=== PATIENT | female | born 1985 | race Caucasian/White ===

== ENCOUNTER → 2017-05-31 14:43 | Outpatient (CLI) | payer MEDICAID, OTHER, SELFPAY ==
--- NOTE | 2017-05-31 14:51 | US_ITS ---
US thyroid HISTORY: ITS.REASON: THYROMEGLY, para loss, fatigue ORDERING PHYSICIAN: Kristy Lea PATIENT AGE: 31 years COMPARISON: None FINDINGS: Right lobe: Right lobe measures 4.3 x 1.5 x 1.9 cm. There is a mixed nodule in the mid aspect of the right lobe at 13 x 8 mm isoechoic and hypoechoic. Left lobe: 4.3 x 1.2 x 1.6 cm Isthmus: Unremarkable IMPRESSION: Thyroid gland is upper limits of normal in size. 13 mm mixed Echogenic nodule in the mid polar region on the right indeterminate. Recommend 6 month follow-up
== END ==
PROVIDERS: Family Provider Family Medicine; PCP Nurse Practitioner Family; Visit Provider Nurse Practitioner Family
DX: E01.0 Iodine-deficiency related diffuse (endemic) goiter (principal)
CPT/HCPCS: 76536

== ENCOUNTER → 2017-11-11 14:37 | Outpatient (CLI) | payer OTHER, MEDICAID, SELFPAY ==
--- NOTE | 2017-11-11 14:40 | US_ITS ---
US thyroid HISTORY: Follow-up thyroid nodule ITS.REASON: thyroid nodule ORDERING PHYSICIAN: Donald Baer MD PATIENT AGE: 32 years Comparison: 05/31/2017 FINDINGS: The right lobe is 4.1 x 1.4 x 2.2 cm. A complex 1 cm nodule is present in the lower pole having both cystic and solid component. Overall the nodule slightly smaller previously at 1.3 x 0.8 cm. No new nodules. The left lobe is 3.8 x 1.2 x 1.9 cm and has an unremarkable appearance. IMPRESSION: Slight decrease in size in complex right-sided thyroid nodule
[2017-11-11 17:02] LABS: Free T4 (Free Thyroxine) 0.79 ng/dl (0.76-1.46); Thyroid Stimulating Hormone 2.07 uIU/ml (0.358-3.740)
== END ==
PROVIDERS: Family Provider Family Medicine; PCP Nurse Practitioner Family; Visit Provider Otolaryngology
DX: E04.1 Nontoxic single thyroid nodule (principal)
CPT/HCPCS: 36415; 76536; 84439; 84443

== ENCOUNTER → 2019-08-18 14:32 | Outpatient (CLI) | payer OTHER, SELFPAY ==
[2019-08-20 08:55] LABS: Covid-19 Nasal PCR Sendout Lex NOT DETECTED
--- NOTE | 2019-08-20 11:28 | PC.NURSE ---
0900-pt and provider notified of negative COVID 19 results.
== END ==
PROVIDERS: Visit Provider Nurse Practitioner Family
DX: R05 Cough (principal); R50.9 Fever, unspecified

== ENCOUNTER → 2020-02-13 12:57 | Outpatient (CLI) | payer OTHER, SELFPAY ==
--- NOTE | 2020-02-13 17:02 | PC.NURSE ---
pt notified her covid test was positive, pt states only symptom was scratchy throat- pt has been in isolation
== END ==
PROVIDERS: PCP Family Medicine; Visit Provider Nurse Practitioner Family
DX: Z20.828 Contact with and (suspected) exposure to other viral communicable diseases (principal); U07.1 COVID-19
CPT/HCPCS: U0003

== ENCOUNTER → 2021-03-27 14:16 | Outpatient (CLI) | payer OTHER, SELFPAY ==
--- NOTE | 2021-03-27 14:18 | US_ITS ---
PROCEDURE: US THYROID CLINICAL INDICATION: THYROID NODULE COMPARISON: US THY US thyroid from 11/11/2017 FINDINGS: Right lobe: 4.2 x 1.5 x 1.9 cm. A cystic nodules present in the mid aspect of the right lobe of the thyroid gland at 14 x 9 mm. The nodule has enlarged however has become more cystic compared to the previous exam TR level 2 benign-appearing. The nodule is wider than tall with no calcifications. Left lobe: 4.2 x 1.1 x 1.7 cm with an unremarkable appearance. Isthmus: 3 mm in thickness Additional findings: IMPRESSION: Benign-appearing cystic nodule of the right lobe of the thyroid gland. Dictated by: Davy Bobby MD 03/27/2021 18:08 Davy Bobby MD in [facility] 03/27/2021 18:08
== END ==
PROVIDERS: PCP Family Medicine; Visit Provider Otolaryngology
DX: E04.1 Nontoxic single thyroid nodule (principal)
CPT/HCPCS: 76536

== ENCOUNTER → 2021-04-18 08:47 | Outpatient (CLI) | payer OTHER, SELFPAY ==
[2021-04-18 09:18] LABS: Basophils % 0.3 % (0.1-2.0); Eosinophils # 0.2 K/mm3 (0.0-0.4); Eosinophils % 3.6 % (0.1-12.0); Hematocrit 40.3 % (37.0-47.0); Hemoglobin 13.7 g/dL (12.2-16.2); Mean Corpuscular Volume 88.1 fl (81-99); Mean Platelet Volume 7.9 fl (7.4-10.4); Monocytes # 0.4 K/mm3 (0.1-1.0); Neutrophils # 3.6 K/mm3 (1.8-7.8); Platelet Count 296 K/mm3 (142-424); Red Blood Count 4.57 M/mm3 (4.20-5.40); Red Cell Distribution Width 12.8 % (11.5-17.5); White Blood Count 6.2 K/mm3 (4.8-10.8)
[2021-04-18 10:25] LABS: Chloride 104 mmol/L (98-107); HCG Qualitative, Serum Negative (Negative)
[2021-04-18 10:26] LABS: Potassium 4.9 mmoL/L (3.5-5.1); Sodium 139 mmol/L (136-145)
[2021-04-18 10:28] LABS: Alanine Aminotransferase 58 U/L (12-78); Alkaline Phosphatase 66 U/L (38-126); Aspartate Amino Transferase 57 U/L (14-36); Blood Urea Nitrogen 13 mg/dl (7-17); Estimated Glomerular Filt Rate 114 ml/min (>60); GFR (African American) 138 ML/MIN (>60)
[2021-04-18 10:29] LABS: Albumin Level 4.1 g/dl (3.5-5.0); Albumin/Globulin Ratio 1.6 (1.1-1.8); Anion Gap 11.9 mEq/L (5-15); Calcium 8.6 mg/dl (8.4-10.2); Carbon Dioxide 28 mmol/L (22.0-30.0); Globulin 2.5 g/dL (1.3-3.2); Glucose 90 mg/dl (74-100); Total Protein,Serum 6.6 g/dl (6.3-8.2)
[2021-04-18 10:34] LABS: Bilirubin,Total < 0.1 mg/dl (0.2-1.3)
== END ==
PROVIDERS: Visit Provider Obstetrics & Gynecology
DX: Z01.812 Encounter for preprocedural laboratory examination (principal); Z11.52 Encounter for screening for COVID-19; N92.0 Excessive and frequent menstruation with regular cycle
CPT/HCPCS: 36415; 80053; 84703; 85025; C9803; U0003; U0005

== ENCOUNTER 2021-04-20 07:22 | Day surgery (SDC) | payer OTHER, SELFPAY ==
[2021-04-17 11:14] VITALS: BMI 40.7
[2021-04-20] VITALS (10 sets, daily range): BP systolic 114–135; BP diastolic 47–96; PULSE 90–110; RESP 16–17; TEMP 36.7–43; O2SAT 93–100
--- NOTE | 2021-04-20 09:14 | HMH.ANESCL ---
[facility] Anesthesia Checklist - Patient Identification Patient Identification: Arm Band - Structural Data Admitted From: Home Planned Operative Procedure/s: Hyst/BTL Consent for Planned Operative Procedure(s) Verified: Yes - NPO Status Verified Time NPO: 00:00 - Additional verifications Anesthesia Reactions: No Hx Blood Transfusions: No Blood Transfusion Reaction: No - Airway Assessment C-Spine Mobility Assessed: Yes TMJ Mobility Assessed: Yes Dentition: Good Dentition - Neurological Assessment Level of Consciousness: Awake Hx Seizures: No Numbness or tingling in extremities: No - Anesthesia Plan Anesthesia Risk discussed: Yes Anesthesia Plan: Verified ASA Class: II Anesthesia Type: General [facility] History I have reviewed the patient's past medical history: Yes Medical History: Reports:: Anxiety, Depression Denies:: Cancer, Diabetes Mellitus Type 1, Diabetes Mellitus Type 2, Internal Pacemaker, MRSA, Seizures *Have you ever received a pneumonia vaccine?: No *Have you received a flu vaccine this season?: Yes Other Medical History: Denies: Blood Transfusion Reaction Anesthesia experience/problems:: None Other Surgeries: Yes: No Previous Surgery, Dilation and Curettage, Other. No: Pacemaker Amputation: No Fractures: No - *Social History Last grade of school completed: Advanced degree Smoking Status: Never smoker Alcohol Intake: never Alcohol Intake Frequency:: holidays/special occasions only Substance Use Type: denies use *Occupational Status:: employed Housing: house Household Members: children *Travel in the last 8 weeks: None - Psychiatric History Pschychiatric History:: Reports:: Anxiety, Depression Family Hx:: Asthma, Coronary Artery Disease, Diabetes, Heart Attack, Hyperlipidemia, Hypertension, Stroke, Thyroid Disorder
--- NOTE | 2021-04-20 11:11 | P.PN_ITS ---
[facility] Anesthesia Record Part I Intake, IV Amount: 1,000 Estimated blood loss (mL): 5 Urine output (mL): 0 Blood Pressure: 134/62 SaO2: 93 Pulse Rate: 94 Respiratory Rate: 17 Temperature: 98.3 F Patient is:: Drowsy, Oral/Nasal airway Stable to PACU at:: 11:09
--- NOTE | 2021-04-20 13:32 | P.OP_ITS ---
Date of procedure: 04/20/21 Pre-op Diagnosis:: 1. Heavy menstrual bleeding 2. Dysfunctional uterine bleeding 3. Undesired fertility Post-op Diagnosis:: same Procedure performed:: 1. Laparoscopic tubal ligation 2. D&C Hysteroscopy 3. Novasure endometrial ablation Surgeon:: Evelin Gr MD FURNITURE PAINTER:: Faustinajuan miguel Chinmekhi Anesthesia: GETA Estimated blood loss (mL): 5 Operative findings:: grossly normal uterus, fallopian tubes and ovaries normal uterine cavity Operative note:: LAPAROSCOPY: The patient was taken to the operating room and general anesthesia was administered. She was prepped/draped in lithotomy position. A uterine manipulator was placed without difficulty. Gloves were changed and attention was turned to the abdomen. A 5mm skin incision was made in the umbilical fold and the verees needle was inserted through the peritoneum and into the abdominal cavity in standard fashion. The abdomen was insufflated with CO2 gas. A 5mm non-bladed trocar was inserted directly into the abdominal cavity and appropriate placement was confirmed with the laparoscope. No intra-abdominal injuries occurred during entry into the abdominal cavity, as confirmed visually with the laparoscope. The patient was placed in trendelenburg and a 11mm skin incision was made 2cm above the pubic symphysis. A 11mm non-bladed trocar was inserted under direct visualization, without complication. The uterus was elevated out of the pelvis in order to better visualize the anatomy. A survey of the pelvis and abdomen revealed normal pelvic anatomy. Filshie clips were placed over both fallopian tubes, approximately 2cm from the cornual region of the uterus. The clips were noted to completely occlude each tube. The abdomen was then evacuated of gas and all trocars removed. The skin incisions were closed with 4-0 monocryl. HYSTEROSCOPY: Attention was then turned to the vagina, and the uterine manipulator was removed. The anterior lip of the cervix was grasped with a single tooth tenaculum and the cervix was dilated with Neely dilators of serially increasing size until the external os was able to accomodate the Myosure hysteroscope. The hysteroscope was advanced through the cervix and into the uterine cavity, which was distended with LR. Once the uterus was sufficiently distended, the cavity was evaluated and revealed a normal uterine cavity without submucosal fibroids or endometrial polyps. Sharp curettage was performed and the specimen sent for pathology. The hysteroscope were removed from the uterus. The uterine cavity sounded to a length of 5cm. The Novasure was inserted through the cervix and expanded to fit the width of the uterus, with a width of 3.8cm. After a successful cavity assessment, the device was deployed and the endometrial ablation was completed in 74 seconds. Once the device had turned off, the Novasure was removed from the uterus and the hysteroscope was reinserted into the uterine cavity. The cavity appeared diffusely cauterized. The hysteroscope was removed from the uterus and all instruments removed from the vagina. The tenaculum site was hemostatic. All sponge/lap/needle/instrument counts correct for both abdominal and vaginal procedures. Total EBL: 5 cc. The patient was taken out of lithotomy position, extubated and taken to the PACU in stable condition. Condition: stable Disposition: PACU Specimens:: endometrial curettings Complications:: none
--- NOTE | 2021-04-21 13:20 | P.PN_ITS ---
[facility] Anesthesia Record Part II Discharge Time: 11:49 Destination: [facility] PACU nurse assessment reviewed?: Yes Patient Condition:: Good Anesthesia Complications:: None Swallowing reflex intact?: Yes Cyanosis?: No Blood Pressure: 126/76 Pulse Rate: 110 Temperature: 98.0 F Mental Status: Alert & Oriented Pain level:: 3 Nausea and/or vomitting:: None Intake, IV Amount: 1,000
[2021-04-21 13:21] VITALS: BP 126/76; PULSE 110; TEMP 36.7
== END 2021-04-20 12:25 | disposition home or self-care (01) ==
LOC: OR 07:24
PROVIDERS: PCP Family Medicine; Visit Provider Obstetrics & Gynecology
PROC: (CPT 58563; principal; 2021-04-20 09:00)
DX: N92.0 Excessive and frequent menstruation with regular cycle (principal); N94.6 Dysmenorrhea, unspecified; Z30.2 Encounter for sterilization; F41.9 Anxiety disorder, unspecified; F32.A Depression, unspecified; Z87.09 Personal history of other diseases of the respiratory system; Z83.3 Family history of diabetes mellitus; Z82.49 Family history of ischemic heart disease and other diseases of the circulatory system; Z83.438 Family history of other disorder of lipoprotein metabolism and other lipidemia; Z82.3 Family history of stroke; Z83.49 Family history of other endocrine, nutritional and metabolic diseases; Z79.899 Other long term (current) drug therapy
CPT/HCPCS: 58563 ×2; 58670; 96374; J0131; J2405

== ENCOUNTER → 2022-11-12 12:46 | Outpatient (CLI) | payer OTHER, SELFPAY ==
--- NOTE | 2022-11-12 12:52 | US_ITS ---
PROCEDURE: US TRANSVAGINAL CLINICAL INDICATION: pelvic pain COMPARISON: No exams were available for comparison FINDINGS: UTERUS: 8cm x 5cmx 5cm with a combined endometrial thickness of 4.9mm. The uterus is retroverted and retroflexed. There is a 1 centimeter cystic area at the fundus of the uterus possibly a result of post ablation changes. There are 2 nabothian cysts in the cervix each measures approximately 1 cm in size. LEFT OVARY: [id number] with a volume of 7ml.The left ovary appears polycystic. RIGHT OVARY: 3cmx [id number] with a volume of 9.8ml. The right ovary appears polycystic There is a small amount of fluid around the right ovary. Both ovaries are seen and appear normal. Doppler flow to both ovaries are seen. There is no fluid in the cul-de-sac. IMPRESSION: 1. Uterus is retroverted and retroflexed. The endometrium is 4.9 mm. 2. There is a cystic area at the fundus of the uterus associated with post ablation changes that measures approximately 1 cm. 3. There are 2 nabothian cysts in the cervix that each measure 1 cm. 4. Both ovaries appear polycystic. Dictated by: Bo Barnard MD 11/13/2022 08:42 Bo Barnard MD in [facility] 11/13/2022 08:42
[2022-11-12 14:27] LABS: Basophils % 0.1 % (0.1-2.0); Eosinophils # 0.1 K/mm3 (0.0-0.4); Eosinophils % 1.1 % (0.1-12.0); Hemoglobin 13.3 g/dL (12.2-16.2); Lymphocytes # 2.4 K/mm3 (0.7-4.5); Lymphocytes % 38.9 % (10-50); Mean Corpuscular HGB Conc 32.4 g/dL (31.8-35.4); Mean Corpuscular Hemoglobin 26.1 pg (27.0-31.2); Mean Corpuscular Volume 80.3 fl (81-99); Mean Platelet Volume 8.1 fl (7.4-10.4); Monocytes # 0.3 K/mm3 (0.1-1.0); Monocytes % 5.7 % (1.7-9.3); Neutrophils # 3.3 K/mm3 (1.8-7.8); Neutrophils % 54.3 % (37.0-80.0); Platelet Count 260 K/mm3 (142-424); Red Blood Count 5.11 M/mm3 (4.20-5.40); Red Cell Distribution Width 15.5 % (11.5-17.5); White Blood Count 6.1 K/mm3 (4.8-10.8)
[2022-11-12 15:02] LABS: Alanine Aminotransferase 15 U/L (12-78); Albumin Level 4.4 g/dl (3.5-5.0); Albumin/Globulin Ratio 1.8 (1.1-1.8); Alkaline Phosphatase 56 U/L (38-126); Aspartate Amino Transferase 21 U/L (14-36); Bilirubin,Total 0.4 mg/dl (0.2-1.3); Blood Urea Nitrogen 13 mg/dl (7-17); Calcium 9.1 mg/dl (8.4-10.2); Carbon Dioxide 28 mmol/L (22.0-30.0); Cholesterol 210 mg/dl (140-200); Estimated Glomerular Filt Rate 95 ml/min (>60); GFR (African American) 115 ML/MIN (>60); Globulin 2.5 g/dL (1.3-3.2); Glucose 80 mg/dl (74-100); HDL Cholesterol 52 mg/dl (40-60); Potassium 4.5 mmoL/L (3.5-5.1); Sodium 138 mmol/L (136-145); Total Protein,Serum 6.9 g/dl (6.3-8.2); Triglycerides 130 mg/dl (30-150); VLDL Cholesterol 26 mg/dL (0-40)
[2022-11-12 15:13] LABS: Direct LDL Cholesterol 125.33 mg/dL (100-129)
[2022-11-12 15:33] LABS: Thyroid Stimulating Hormone 1.61 uIU/mL (0.465-4.68)
[2022-11-12 15:49] LABS: Hemoglobin A1C 5.3 % (4.0-6.0)
[2022-11-12 16:50] LABS: 25-OH Vitamin D, Total 33.4 ng/mL (30-100)
[2022-11-12 16:51] LABS: Anion Gap 10.5 mEq/L (5-15); Chloride 104 mmol/L (98-107)
== END ==
PROVIDERS: PCP Nurse Practitioner Family; Visit Provider Obstetrics & Gynecology
DX: R10.2 Pelvic and perineal pain (principal); E78.2 Mixed hyperlipidemia; F39 Unspecified mood [affective] disorder; E55.9 Vitamin D deficiency, unspecified; Z98.84 Bariatric surgery status
CPT/HCPCS: 36415; 76830; 80053; 80061; 82306; 83036; 84443; 85025

== ENCOUNTER 2023-05-08 19:51 | Emergency (ER) | payer OTHER, SELFPAY ==
[2023-05-08] VITALS (9 sets, daily range): BP systolic 110–128; BP diastolic 66–88; PULSE 70–94; RESP 12–20; TEMP 36.7–36.8; O2SAT 96–100; BMI 26.0; BMI 57.4
--- NOTE | 2023-05-08 19:52 | ECG_ITS ---
APPROVED REPORT Exam: Resting ECG HR:79 bpm ECG Measurements Heart Rate 79 AXES CA 136 P 68 QRSd 74 QRS 80 QT 347 T 79 QTc 381 Conclusion SINUS RHYTHM NORMAL ECG UNCONFIRMED REPORT Electronically signed by : Alfonso Lorenzana MD 05/09/2023 20:32:04
--- NOTE | 2023-05-08 20:01 | XR_ITS ---
PROCEDURE INFORMATION: Exam: XR Chest Exam date and time: 05/08/2023 8:00 PM Age: 37 years old Clinical indication: Other: Chest pain TECHNIQUE: Imaging protocol: Radiologic exam of the chest. Views: 2 views. COMPARISON: No relevant prior studies available. FINDINGS: Lungs: Unremarkable. No consolidation. Pleural spaces: Unremarkable. No pleural effusion. No pneumothorax. Heart/Mediastinum: Unremarkable. No cardiomegaly. Bones/joints: Unremarkable. IMPRESSION: No acute pulmonary findings.
[2023-05-08 20:15] LABS: Basophils # 0.1 K/mm3 (0-0.2); Basophils % 0.9 % (0.1-2.0); Eosinophils # 0.2 K/mm3 (0.0-0.4); Hematocrit 44.3 % (37.0-47.0); Lymphocytes % 40.4 % (10-50); Mean Corpuscular HGB Conc 33.9 g/dL (31.8-35.4); Mean Corpuscular Hemoglobin 29.7 pg (27.0-31.2); Mean Corpuscular Volume 87.8 fl (81-99); Mean Platelet Volume 7.9 fl (7.4-10.4); Monocytes # 0.5 K/mm3 (0.1-1.0); Monocytes % 6.1 % (1.7-9.3); Neutrophils # 3.8 K/mm3 (1.8-7.8); Neutrophils % 50.6 % (37.0-80.0); Platelet Count 370 K/mm3 (142-424); Red Blood Count 5.04 M/mm3 (4.20-5.40); Red Cell Distribution Width 12.8 % (11.5-17.5); White Blood Count 7.5 K/mm3 (4.8-10.8)
--- NOTE | 2023-05-08 20:29 | CT_ITS ---
PROCEDURE INFORMATION: Exam: CT Head Without Contrast Exam date and time: 05/08/2023 8:44 PM Age: 37 years old Clinical indication: Pain; Other: Fall; Additional info: Fall, head injury n/v TECHNIQUE: Imaging protocol: Computed tomography of the head without contrast. Radiation optimization: All CT scans at this facility use at least one of these dose optimization techniques: automated exposure control; mA and/or kV adjustment per patient size (includes targeted exams where dose is matched to clinical indication); or iterative reconstruction. COMPARISON: US THYROID 03/27/2021 2:19 PM FINDINGS: Brain: Normal. No hemorrhage. Unremarkable white matter. No mass effect. Cerebral ventricles: No ventriculomegaly. Paranasal sinuses: Visualized sinuses are unremarkable. No fluid levels. Mastoid air cells: Visualized mastoid air cells are well aerated. Bones/joints: Unremarkable. No acute fracture. Soft tissues: Unremarkable. IMPRESSION: No acute intracranial findings.
--- NOTE | 2023-05-08 20:29 | CT_ITS ---
PROCEDURE INFORMATION: Exam: CT Cervical Spine Without Contrast Exam date and time: 05/08/2023 8:46 PM Age: 37 years old Clinical indication: Neck pain; Additional info: Midline c spine pain following fall TECHNIQUE: Imaging protocol: Computed tomography of the cervical spine without contrast. Radiation optimization: All CT scans at this facility use at least one of these dose optimization techniques: automated exposure control; mA and/or kV adjustment per patient size (includes targeted exams where dose is matched to clinical indication); or iterative reconstruction. COMPARISON: CT HEAD/BRAIN WO CON 05/08/2023 8:44 PM FINDINGS: Bones/joints: Cervical vertebrae normal in height. Reversal of normal cervical lordosis centered at C5-C6. Mild levoconvex curvature of the cervicothoracic junction. Maintained craniocervical junction. No acute fracture. Mild mid to lower cervical spine degenerative changes. No severe spinal canal stenosis. Mild left C5-C6 neural foraminal narrowing. Lungs: Lung apices are normal. Soft tissues: Unremarkable. IMPRESSION: No acute osseous findings.
[2023-05-08 20:30] LABS: Chloride 102 mmol/L (98-107); Sodium 140 mmol/L (136-145)
[2023-05-08 20:31] LABS: Potassium 3.6 mmoL/L (3.5-5.1)
[2023-05-08 20:33] LABS: Alanine Aminotransferase 20 U/L (12-78); Albumin Level 4.6 g/dl (3.5-5.0); Albumin/Globulin Ratio 1.6 (1.1-1.8); Alkaline Phosphatase 54 U/L (38-126); Anion Gap 11.6 mEq/L (5-15); Aspartate Amino Transferase 26 U/L (14-36); Bilirubin,Total 0.4 mg/dl (0.2-1.3); Blood Urea Nitrogen 16 mg/dl (7-17); Carbon Dioxide 30 mmol/L (22.0-30.0); Creatinine Clearance Estimated 92 mL/min (50-200); Estimated Glomerular Filt Rate 95 ml/min (>60); GFR (African American) 115 ML/MIN (>60); Globulin 2.8 g/dL (1.3-3.2); Total Protein,Serum 7.4 g/dl (6.3-8.2)
[2023-05-08 20:34] LABS: Calcium 8.6 mg/dl (8.4-10.2); Glucose 75 mg/dl (74-100)
--- NOTE | 2023-05-08 20:34 | ED_ITS ---
Discharge Plan Disposition Patient Disposition: Home, Self-Care Condition: Good Prescriptions Prescriptions: No Action venlafaxine 37.5 mg capsule,extended release 24hr 37.5 mg PO dextroamphetamine-amphetamine [Adderall XR] 30 mg capsule,extended release 24hr 30 mg PO diltiazem HCl [Cartia XT] 120 mg capsule,extended release 24hr 120 mg PO DAILY Referrals Follow up/Referrals: Abdirahman Quiñonez MD [Staff Physician] - See instructions Provider,MD Ricky [Referring] - See instructions Activity Restrictions/Add. Instructions Additional Instructions/Restrictions: Please follow up with our fish and wildlife biologist for a more comprehensive evaluation of your heart regarding your chronic and intermittent orthostatic syncopal episodes. Clinical Impressions Clinical Impression: Concussion, Chest pain, Cervical strain, Orthostatic syncope Discharge ED Provider: Josse Gr [facility] <Josse Gr MD - Last Filed: 05/08/23 22:42> General Chief Complaint: Chest Pain Stated Complaint: CP Time Seen by Provider: 05/08/23 20:09 Mode of Arrival: Family Vehicle Source of Information: Patient Limitations: No Limitations Description of Symptoms (Recalled from ER Triage Doc. by RN): 37 yo female presents with CC of chest tightness that began at approx 3pm. States she has had an eventful day complete with a syncopal episode where she fell and hit her head this morning; saw a physician specialist in [place] this afternoon and developed chest pain this afternoon. Patient is currently diagnosed with Sjorgen's syndrome, Raynaud's and being evaluated for POTS (which she attributes the syncopal episode to). Current meds: effexor and adderall. Denies any recent changes or missed dosages. No previous diagnosed cardiac events or arrythmias . 1 episode of vomiting following the morning's fall. Denies visual changes, or additional feelings of syncope. States her neck is sore. History of Present Illness HPI narrative: Is a 37-year-old female present today with multiple complaints. She has been having several syncopal episodes a month over the last several years always associated with positional change going from lying to sitting or sitting to standing. She is never had any cardiac evaluation and has not sought medical evaluation for this until very recently. Check she had a rheumatology appointment today for evaluation of possible Raynaud's she has a family history of multiple autoimmune disorders and they think that she may have similar symptoms. However this morning she had another syncopal episode upon standing fell hit her head has had significant head pain nausea and vomiting and midline cervical spine pain since that time. No focal neurologic deficits or any other complaints. Of note she presents today with chest pain which started around 3 PM has been sharp in nature nonradiating nonexertional no fevers chills cough etc. but is primarily the chest pain that brought her here today. Related Data Home Medications Medication Instructions Recorded Confirmed dextroamphetamine-amphetamine ER 30 mg PO 10/25/22 03/18/23 30 mg 24hr capsule,extend release (Adderall XR) venlafaxine 37.5 mg 37.5 mg PO 10/25/22 03/18/23 capsule,extended release 24 hr diltiazem HCl 120 mg 120 mg PO DAILY 03/18/23 03/18/23 capsule,extended release 24 hr (Cartia XT) Allergies Allergy/AdvReac Type Severity Reaction Status Date / Time No Known Allergies Allergy Verified 03/18/23 10:42 [facility] <Josse Gr MD - Last Filed: 05/08/23 22:42> [facility] Disclaimer: The information contained in this section may have been updated after the patient was seen, as this information can be updated by other users. 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 current occupational exposures/hazards: No caffeine: Yes <Josse Gr MD - Last Filed: 05/08/23 22:42> ROS Obtained: Yes All systems reviewed & no additional complaints except as documented Physical Exam <Josse Gr MD - Last Filed: 05/08/23 22:42> General General appearance: alert and in no apparent distress Neck Neck exam: Present tenderness (Cervical spine tenderness) Respiratory Respiratory exam: Present normal lung sounds bilaterally; Absent respiratory distress or wheezes Cardiovascular Cardiovascular exam: Present regular rate; Absent tachycardia Neurological Exam Neurological exam: Present alert, oriented X3, CN II-XII intact and normal gait; Absent motor sensory deficit HEART Score <Josse Gr MD - Last Filed: 05/08/23 22:42> HEART Score HEART Score assessment performed?: Yes History (anamnesis): Slightly suspicious ECG: Normal Age: <45 years Risk factors: No known risk factors Troponin: </= normal limit HEART Score: 0 <Oma Linares DO - Last Filed: 05/09/23 00:08> HEART Score HEART Score: 0 Critical Care <Josse Gr MD - Last Filed: 05/08/23 22:42> Critical Care Time Critical Care Time: No Medical Decision Making <Josse Gr MD - Last Filed: 05/08/23 22:42> Vamshi Inquiry Pt receiving controlled substance: No Vital Signs Vital Signs: 05/08/23 19:55 05/08/23 20:00 05/08/23 20:30 Temperature 98.0 F Temperature Source Oral Pulse Rate 86 84 Pulse Rate [Right Brachial] 94 H Respiratory Rate 13 12 20 Blood Pressure 127/81 123/78 Blood Pressure [right] 121/88 Blood Pressure Mean [right] 99 Blood Pressure Source [right] Automatic Cuff Blood Pressure Position [right] Sitting 02 Sat by Pulse Oximetry 96 99 98 Oxygen Delivery Method Room Air 05/08/23 21:00 05/08/23 21:30 05/08/23 22:01 Temperature Temperature Source Pulse Rate 82 82 76 Pulse Rate [Right Brachial] Respiratory Rate 16 14 13 Blood Pressure 111/76 110/66 127/74 Blood Pressure [right] Blood Pressure Mean [right] Blood Pressure Source [right] Blood Pressure Position [right] 02 Sat by Pulse Oximetry 98 99 100 Oxygen Delivery Method 05/08/23 22:30 05/08/23 23:01 05/08/23 23:15 Temperature 98.2 F Temperature Source Oral Pulse Rate 73 70 74 Pulse Rate [Right Brachial] Respiratory Rate 15 16 18 Blood Pressure 128/79 111/84 111/84 Blood Pressure [right] Blood Pressure Mean [right] Blood Pressure Source [right] Blood Pressure Position [right] 02 Sat by Pulse Oximetry 97 98 Oxygen Delivery Method 05/08/23 19:55 Temperature Temperature Source Pulse Rate 80 Pulse Rate [Right Brachial] Respiratory Rate Blood Pressure Blood Pressure [right] Blood Pressure Mean [right] Blood Pressure Source [right] Blood Pressure Position [right] 02 Sat by Pulse Oximetry Oxygen Delivery Method Lab Data Lab results reviewed: Yes I reviewed the patient's lab results. Labs: Lab Results 05/08/23 19:56: WBC 7.5, RBC 5.04, Hgb 15.0, Hct 44.3, MCV 87.8, MCH 29.7, MCHC 33.9, RDW 12.8, Plt Count 370, MPV 7.9, Neut % (Auto) 50.6, Lymph % (Auto) 40.4, [place] % (Auto) 6.1, Eos % (Auto) 2.0, Baso % (Auto) 0.9, Neut # (Auto) 3.8, Lymph # (Auto) 3.0, [place] # (Auto) 0.5, Eos # (Auto) 0.2, Baso # (Auto) 0.1, Sodium 140, Potassium 3.6, Chloride 102, Carbon Dioxide 30, Anion Gap 11.6, BUN 16, Creatinine 0.70, Estimated Creat Clear 92, Estimated GFR 95, Est GFR ( Amer) 115, Glucose 75, Calcium 8.6, Total Bilirubin 0.4, AST 26, ALT 20, Alkaline Phosphatase 54, Troponin I < 0.01, Total Protein 7.4, Albumin 4.6, Globulin 2.8, Albumin/Globulin Ratio 1.6 05/08/23 22:40: Troponin I < 0.01 05/08/23 19:56 05/08/23 19:56 Response Orders (Tests/Meds): ED MEDICATIONS Discontinued Medications Generic Name Dose Route Start Last Admin Trade Name Freq PRN Reason Stop Dose Admin Acetaminophen 1,000 mg 05/08/23 20:29 05/08/23 20:35 Acetaminophen 500mg Tab PO 05/08/23 20:30 1,000 mg ONCE ONE Administration Lactated Ringer's 1,000 mls @ 999 mls/hr 05/08/23 20:30 05/08/23 20:35 Lactated Ringer's 1000 Ml Bag IV 05/08/23 21:30 999 mls/hr .Q1H1M ALLA Administration ORDERS Category Date Time Status CT cervical spine wo con Stat Cat Scan 05/08/23 20:[address] head/brain wo con Stat Cat Scan 05/08/23 20:29 Completed Chest XR 2 view (NOT portable) [XR chest 2V] Stat Exams 05/08/23 20:01 Completed Complete Blood Count Auto Diff Stat Lab 05/08/23 19:56 Completed Comprehensive Metabolic Panel Stat Lab 05/08/23 19:56 Completed Troponin I Q3H Lab 05/08/23 22:40 Completed Troponin I Stat Lab 05/08/23 19:56 Completed ECG initial [place] Routine Y 05/08/23 19:52 Completed MDM Narrative Medical Decision Narrative: 37-year-old female with above history symptoms consistent with orthostatic hypotension leading to syncope. Unclear as to what is causing this she needs more cardiovascular workup after today I do not suspect a significant arrhythmia but she needs to follow-up with cardiology we will give her referral to this for further structural evaluation and possible Holter event monitoring. Given the fact that there is concern for rheumatologic disease she may have some vasculopathy associated with this and poor vascular tone which could be leading to her continuous orthostatic hypotension symptoms has been having. She has had no nausea vomiting or anything else to suggest a significant dehydration. From a trauma standpoint she fell hit her head has persistent nausea and vomiting into midline cervical spine tenderness warranting a CT scan. She has a GCS of 15 with a normal neurologic exam I suspect that it is unlikely that she will have anything requiring neurosurgical intervention. Will give her IV fluids and oral Tylenol and she will require serial troponins. For this reason ED observation order was placed at around 8:30 PM pending serial troponins at which point she will be stable for outpatient follow-up assuming they are negative. EKG performed at person interpreted shows a ventricular rate of 79 normal sinus rhythm no acute ischemic changes noted normal axis no significant conduction abnormalities nondiagnostic emergency EKG. Reassessment 9:[address] scan of the patient's head and cervical spine personally interpreted shows no acute abnormality additionally chest x-ray performed which appears interpreted shows no acute cardiopulmonary emergency. Radiology reads are consistent with this as well for set of labs unremarkable patient starting to feel better 500 cc of fluids have been administered she was given Tylenol. States she still has a little bit of trapezius tenderness and tightness on the left side but denies needing muscle relaxer. Awaiting second troponin and final disposition depending on that test. Care transitioned to Dr. Linares at 11 pm for final evaluation after 2nd Tn. <Oma Linares, DO - Last Filed: 05/09/23 00:08> Vital Signs Vital Signs: 05/08/23 19:55 05/08/23 20:00 05/08/23 20:30 Temperature 98.0 F Temperature Source Oral Pulse Rate 86 84 Pulse Rate [Right Brachial] 94 H Respiratory Rate 13 12 20 Blood Pressure 127/81 123/78 Blood Pressure [right] 121/88 Blood Pressure Mean [right] 99 Blood Pressure Source [right] Automatic Cuff Blood Pressure Position [right] Sitting 02 Sat by Pulse Oximetry 96 99 98 Oxygen Delivery Method Room Air 05/08/23 21:00 05/08/23 21:30 05/08/23 22:01 Temperature Temperature Source Pulse Rate 82 82 76 Pulse Rate [Right Brachial] Respiratory Rate 16 14 13 Blood Pressure 111/76 110/66 127/74 Blood Pressure [right] Blood Pressure Mean [right] Blood Pressure Source [right] Blood Pressure Position [right] 02 Sat by Pulse Oximetry 98 99 100 Oxygen Delivery Method 05/08/23 22:30 05/08/23 23:01 05/08/23 23:15 Temperature 98.2 F Temperature Source Oral Pulse Rate 73 70 74 Pulse Rate [Right Brachial] Respiratory Rate 15 16 18 Blood Pressure 128/79 111/84 111/84 Blood Pressure [right] Blood Pressure Mean [right] Blood Pressure Source [right] Blood Pressure Position [right] 02 Sat by Pulse Oximetry 97 98 Oxygen Delivery Method 05/08/23 19:55 Temperature Temperature Source Pulse Rate 80 Pulse Rate [Right Brachial] Respiratory Rate Blood Pressure Blood Pressure [right] Blood Pressure Mean [right] Blood Pressure Source [right] Blood Pressure Position [right] 02 Sat by Pulse Oximetry Oxygen Delivery Method Lab Data Labs: Lab Results 05/08/23 19:56: WBC 7.5, RBC 5.04, Hgb 15.0, Hct 44.3, MCV 87.8, MCH 29.7, MCHC 33.9, RDW 12.8, Plt Count 370, MPV 7.9, Neut % (Auto) 50.6, Lymph % (Auto) 40.4, [place] % (Auto) 6.1, Eos % (Auto) 2.0, Baso % (Auto) 0.9, Neut # (Auto) 3.8, Lymph # (Auto) 3.0, [place] # (Auto) 0.5, Eos # (Auto) 0.2, Baso # (Auto) 0.1, Sodium 140, Potassium 3.6, Chloride 102, Carbon Dioxide 30, Anion Gap 11.6, BUN 16, Creatinine 0.70, Estimated Creat Clear 92, Estimated GFR 95, Est GFR ( Amer) 115, Glucose 75, Calcium 8.6, Total Bilirubin 0.4, AST 26, ALT 20 , Alkaline Phosphatase 54, Troponin I < 0.01, Total Protein 7.4, Albumin 4.6, Globulin 2.8, Albumin/Globulin Ratio 1.6 05/08/23 22:40: Troponin I < 0.01 Response Orders (Tests/Meds): ED MEDICATIONS Discontinued Medications Generic Name Dose Route Start Last Admin Trade Name Freq PRN Reason Stop Dose Admin Acetaminophen 1,000 mg 05/08/23 20:29 05/08/23 20:35 Acetaminophen 500mg Tab PO 05/08/23 20:30 1,000 mg ONCE ONE Administration Lactated Ringer's 1,000 mls @ 999 mls/hr 05/08/23 20:30 05/08/23 20:35 Lactated Ringer's 1000 Ml Bag IV 05/08/23 21:30 999 mls/hr .Q1H1M ALLA Administration ORDERS Category Date Time Status CT cervical spine wo con Stat Cat Scan 05/08/23 20:[address] head/brain wo con Stat Cat Scan 05/08/23 20:29 Completed Chest XR 2 view (NOT portable) [XR chest 2V] Stat Exams 05/08/23 20:01 Completed Complete Blood Count Auto Diff Stat Lab 05/08/23 19:56 Completed Comprehensive Metabolic Panel Stat Lab 05/08/23 19:56 Completed Troponin I Q3H Lab 05/08/23 22:40 Completed Troponin I Stat Lab 05/08/23 19:56 Completed ECG initial [place] Routine Y 05/08/23 19:52 Completed MDM Narrative Medical Decision Narrative: 37-year-old female with above history symptoms consistent with orthostatic hypotension leading to syncope. Unclear as to what is causing this she needs more cardiovascular workup after today I do not suspect a significant arrhythmia but she needs to follow-up with cardiology we will give her referral to this for further structural evaluation and possible Holter event monitoring. Given the fact that there is concern for rheumatologic disease she may have some vasculopathy associated with this and poor vascular tone which could be leading to her continuous orthostatic hypotension symptoms has been having. She has had no nausea vomiting or anything else to suggest a significant dehydration. From a trauma standpoint she fell hit her head has persistent nausea and vomiting into midline cervical spine tenderness warranting a CT scan. She has a GCS of 15 with a normal neurologic exam I suspect that it is unlikely that she will have anything requiring neurosurgical intervention. Will give her IV fluids and oral Tylenol and she will require serial troponins. For this reason ED observation order was placed at around 8:30 PM pending serial troponins at which point she will be stable for outpatient follow-up assuming they are negative. EKG performed at person interpreted shows a ventricular rate of 79 normal sinus rhythm no acute ischemic changes noted normal axis no significant conduction abnormalities nondiagnostic emergency EKG. Reassessment 9:[address] scan of the patient's head and cervical spine personally interpreted shows no acute abnormality additionally chest x-ray performed which appears interpreted shows no acute cardiopulmonary emergency. Radiology reads are consistent with this as well for set of labs unremarkable patient starting to feel better 500 cc of fluids have been administered she was given Tylenol. States she still has a little bit of trapezius tenderness and tightness on the left side but denies needing muscle relaxer. Awaiting second troponin and final disposition depending on that test. Care transitioned to Dr. Linares at 11 pm for final evaluation after 2nd troponin. DO Vijay: On my assessment of the patient, she is resting company without concerns or complaints. Patient second opponent resulted was also negative. Based on reassuring workup and exam, feel the patient is appropriate for discharge. Observation period ended at 2315 on 05/08/23 after 2 hours and 15 minutes. Patient was given instructions for close patient follow-up, strict return precautions, and she was discharged in stable condition after all questions were answered.
[2023-05-08] MEDS: ACETAMINOPHEN 500MG TAB 1000 MG PO (20:35)
[2023-05-08] MEDS: LACTATED RINGERS 1000ML 1,000 ML 999 ML IV (20:35)
--- NOTE | 2023-05-08 20:42 | PC.NURSE ---
pt to radiology
[2023-05-08 20:46] LABS: Troponin I < 0.01 ng/ml (0.00-0.034)
--- NOTE | 2023-05-08 21:45 | PC.NURSE ---
pt given blanket
[2023-05-08 23:06] LABS: Troponin I < 0.01 ng/ml (0.00-0.034)
--- NOTE | 2023-05-08 23:12 | PC.NURSE ---
in room talking with patient at this time.
== END 2023-05-08 23:22 | disposition home or self-care (01) ==
PROVIDERS: Emergency Provider Student in an Organized Health Care Education/Training Program; PCP Nurse Practitioner Family
DX: S06.0X0A Concussion without loss of consciousness, initial encounter (principal); S16.1XXA Strain of muscle, fascia and tendon at neck level, initial encounter; R07.9 Chest pain, unspecified; R55 Syncope and collapse; M35.00 Sjogren syndrome, unspecified; W19.XXXA Unspecified fall, initial encounter
CPT/HCPCS: 70450; 71046; 72125; 80053; 84484; 85025; 93005; 96360; 99285

== ENCOUNTER 2023-05-30 15:33 | Outpatient (CLI) | payer OTHER, SELFPAY ==
[2023-05-30 16:01] LABS: Basophils # 0.1 K/mm3 (0-0.2); Basophils % 0.8 % (0.1-2.0); Eosinophils # 0.1 K/mm3 (0.0-0.4); Eosinophils % 1.1 % (0.1-12.0); Hematocrit 41.8 % (37.0-47.0); Hemoglobin 14.4 g/dL (12.2-16.2); Lymphocytes # 2.8 K/mm3 (0.7-4.5); Lymphocytes % 36.6 % (10-50); Mean Corpuscular HGB Conc 34.4 g/dL (31.8-35.4); Mean Corpuscular Hemoglobin 29.7 pg (27.0-31.2); Mean Corpuscular Volume 86.5 fl (81-99); Mean Platelet Volume 8.1 fl (7.4-10.4); Monocytes # 0.4 K/mm3 (0.1-1.0); Monocytes % 5.4 % (1.7-9.3); Neutrophils # 4.2 K/mm3 (1.8-7.8); Neutrophils % 56.1 % (37.0-80.0); Platelet Count 354 K/mm3 (142-424); Red Blood Count 4.83 M/mm3 (4.20-5.40); Red Cell Distribution Width 12.8 % (11.5-17.5); White Blood Count 7.6 K/mm3 (4.8-10.8)
[2023-05-30 18:08] LABS: Chloride 102 mmol/L (98-107)
[2023-05-30 18:09] LABS: Potassium 5.3 mmoL/L (3.5-5.1); Sodium 137 mmol/L (136-145)
[2023-05-30 18:11] LABS: Alanine Aminotransferase 15 U/L (12-78); Aspartate Amino Transferase 34 U/L (14-36); Blood Urea Nitrogen 14 mg/dl (7-17); Estimated Glomerular Filt Rate 113 ml/min (>60); GFR (African American) 137 ML/MIN (>60)
[2023-05-30 18:12] LABS: Albumin Level 4.2 g/dl (3.5-5.0); Albumin/Globulin Ratio 1.5 (1.1-1.8); Alkaline Phosphatase 34 U/L (38-126); Anion Gap 13.3 mEq/L (5-15); Bilirubin,Total 0.6 mg/dl (0.2-1.3); Carbon Dioxide 27 mmol/L (22.0-30.0); Globulin 2.8 g/dL (1.3-3.2); Glucose 82 mg/dl (74-100)
[2023-05-30 18:49] LABS: HCG,Quantitative < 2 mIU/ml (0-5.42)
== END 2023-05-30 23:59 ==
LOC: LAB 15:33
PROVIDERS: PCP Internal Medicine Adolescent Medicine; Visit Provider Nurse Practitioner Obstetrics & Gynecology
DX: N99.85 Post endometrial ablation syndrome (principal)
CPT/HCPCS: 36415; 80053; 84702; 85025

== ENCOUNTER 2023-06-04 09:58 | Observation (INO) | payer OTHER, SELFPAY ==
[2023-05-31 16:16] VITALS: BMI 26.2
[2023-06-04] VITALS (21 sets, daily range): BP systolic 111–149; BP diastolic 55–83; PULSE 70–100; RESP 16–20; TEMP 35.8–36.6; O2SAT 97–100
[2023-06-04] MEDS: LACTATED RINGERS 1000ML 1,000 ML 25 ML IV (06:18)
[2023-06-04 06:50] LABS: Potassium 3.6 mmoL/L (3.5-5.1)
--- NOTE | 2023-06-04 07:12 | EXP.ANES.CKL ---
[facility] Disclaimer: The information contained in this section may have been updated after the patient was seen, as this information can be updated by other users. Medical History Family history of coronary artery disease Family history of DE (myocardial infarction) Hypothyroid Pelvic pain in female Post endometrial ablation syndrome Surgical History History of bariatric surgery History of endometrial ablation Hx of tubal ligation Family History Other Asthma Cancer Diabetes Heart attack Hypertension Stroke Social History Smoking Status: Never smoker second hand exposure: No alcohol intake: never substance use type: denies use current occupational status: employed Travel in the last 8 weeks: None household members: children housing: house number of children: 3 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 current occupational exposures/hazards: No caffeine: Yes [facility] Anesthesia Checklist Patient Identification Patient Identification: Arm Band, Family and Verbal (Name & ) Structural Data Admitted From: Home Planned Operative Procedure/s: [facility] Consent for Planned Operative Procedure(s) Verified: Yes Verified Documents: Surgical Consent and History and Physical NPO Status Verified Time NPO: 20:30 Chart Verification Results Verified: CBC, BMP, ECG, Chest Xray and HCG Additional verifications Patient : No Anesthesia Reactions: No Hx Blood Transfusions: No Blood Transfusion Reaction: No Cardiovascular Assessment Heart Sounds: S1 & S2 Pulse Rhythm: Irregular Peripheral Edema: No Airway Assessment Mallampati Score:: Class II C-Spine Mobility Assessed: Yes (FROM) TMJ Mobility Assessed: Yes Dentition: Good Dentition (Nothing loose per pt.) Neurological Assessment Level of Consciousness: Awake, Alert, Appropriate and Follows Commands Hx Seizures: No Numbness or tingling in extremities: Yes (Reynaud's INDER Hands) Anesthesia Plan Anesthesia Risk discussed: Yes Anesthesia Plan: Verified ASA Class: II Anesthesia Type: General
[2023-06-04] MEDS: CEFAZOLIN SODIUM 1 GM in 0.9 % SODIUM CHLORIDE 50 ML IV ×3 (07:35→23:25)
[2023-06-04] MEDS: ROPIVACAINE 0.5% 30ML VIAL 300 MG (07:55)
[2023-06-04] MEDS: LIDOCAINE 1% W/EPI 1:100,000 20ML VIAL 20 ML (07:59)
--- NOTE | 2023-06-04 09:29 | EXP.ANES.I ---
[facility] Anesthesia Record Part I Anesthesia Record I Intake, IV Amount: 700 Hydration: Adequate Estimated blood loss (mL): 100 Urine output (mL): 50 Blood Products used (#): none Blood Pressure: 126/77 SaO2: 99 Pulse Rate: 82 Airway Patency: Patent Respiratory Rate: 16 Temperature: 96.5 F Patient is:: Drowsy and Stable Stable to PACU at:: 09:30
--- NOTE | 2023-06-04 09:36 | P.OP_ITS ---
Date of procedure: 06/04/23 Pre-op Diagnosis:: Pelvic pain, dysmenorrhea, likely adenomyosis Post-op Diagnosis:: Pelvic pain, dysmenorrhea, likely adenomyosis, endometriosis Procedure performed:: Laparoscopically assisted vaginal hysterectomy, bilateral to me Surgeon:: Bo Barnard MD Electrical Power Station Technician(s):: Dr. Boothe DRUM STOCK CLERK:: Other (Bobbi Restrepo) Anesthesia: GETA Estimated blood loss (mL): 100 Clinical Note:: She is a 37-year-old 0 para 0 lady who complains of pelvic pain as well as dyspareunia and dysmenorrhea. After having discussed the risk and benefits we will perform a laparoscopic-assisted vaginal hysterectomy and bilateral salpingectomy. Operative findings:: She had a retroverted somewhat bulky uterus. Ovaries appeared normal. The tubes appeared normal and had previously been ligated. There was 1 spot of endometriosis in the deep pelvis. Operative note:: She was taken to the operating room where general anesthesia was found be adequate. She was prepped and draped in normal sterile fashion in the semilithotomy position. A weighted speculum was placed in the vagina and the anterior lip of the cervix was grasped with a tenaculum. An acorn uterine manipulator was then placed within the cervical os. I then changed gloves. I injected 10 cc of 0.5% ropivacaine around the umbilicus and made a small incision within the umbilicus. I inserted a Veress needle into the abdominal cavity. The abdominal cavity was then insufflated with carbon dioxide gas to a pressure of 20 mmHg. I then inserted an 11 mm trocar under direct vision. I injected through and through the pubic hairline, made a small incision here and inserted a 5 mm trocar under direct vision. I identified the inferior epigas tric arteries on the left side, went lateral to these and injected through and through. I then made a small incision and inserted an 11 mm trocar under direct vision. A similar 11 mm trocar was placed on the right side. The left round ligament was then grasped and cut through with harmonic scalpel. This was followed by opening up the peritoneum anteriorly to the midline. I then grasped the tube on the left side and cut through this. This is followed by cutting through the left utero-ovarian ligament. I used Harmonic scalpel on the coagulation mode. I then took down the posterior aspect of the broad ligament to the level of the uterosacral ligament. I then skeletonized the uterine arteries on the left side and placed hemoclips on these. Using the harmonic scalpel on coagulation mode adjacent to the cervix I then took down these uterine arteries. I then further freed up the bladder anteriorly and laterally on the left side. I then turned my attention to the right side where I grasped the right round ligament. I then cut through the right round ligament. I then took down the anterior peritoneum to the midline joining up with the other side. I further dissected the bladder off. I then cut through the right tube. I then took down the utero-ovarian ligament on the right side. The posterior aspect of the right broad ligament was then taken down with harmonic scalpel. I skeletonized the uterine arteries on the right side. I applied hemoclips to the uterine arteries and staying adjacent to the cervix on the right side I took down the uterine arteries with harmonic scalpel on coagulation mode. I further freed up the bladder. We then assured hemostasis. I then grasped the distal end of the right tube and using harmonic scalpel I cut along the mesosalpinx. The tube was removed through the 11 mm trocar site. This was similarly performed on the patient's left side. After once again assuring hemostasis we then turned our attention to the vaginal portion of the surgery. The patient was placed in the lithotomy position and a weighted speculum was placed in the vagina. The anterior and posterior lip of the cervix were grasped with Disla tenacula. I then injected 20 cc of 1% Xylocaine with epinephrine circumferentially about the cervix. I then circumscribed the cervix. I opened up in the posterior cul-de-sac using Ray scissors. I then placed a long weighted speculum through the defect. The left uterosacral ligament was then clamped cut and suture-ligated and tagged. This was followed by the left cardinal ligament which was clamped cut and suture-ligated. I then clamped cut and suture-ligated and tagged the right uterosacral ligament. This was followed by the right cardinal ligament which was clamped cut and suture-ligated. I then grasped the anterior vaginal mucosa and using both sharp and blunt dissection dissected off the bladder. I then opened sharply into the anterior cul-de-sac. A [place] retractor was placed through this defect. Both left and right pedicles were then clamped cut and suture-ligated. This freed up the uterus and it was removed through the vagina. Then inserted a short weighted speculum. Posterior cuff was then closed using running 2-0 Vicryl suture in a locked fashion. I then placed a Langston suture using 0 PDS. I passed it through the vagina and the peritoneum and then through the left perirectal fascia. I then plicated across the posterior peritoneum and through the right perirectal fascia. This was then passed through the peritoneum and vagina and left to be tied at the end. I then grasped the anterior peritoneum and using 2-0 PDS suture in a pursestring fashion I closed the peritoneum. The vaginal cuff was then closed using running 0 Vicryl suture in a locked fashion from left to right from anterior to posterior. A Olivas cath was then placed in the bladder. Clear urine was seen to flow. I then changed gloves and once again insufflated the abdominal cavity with carbon dioxide gas. Hemostasis was once again assured and I rinsed the pelvis. I then sprayed powdered Surgicel all around the pelvis. I injected approximately 20 cc of 0.5% ropivacaine into the pelvis. I let the gas out of the abdomen and once again hemostasis was assured. The secondary trochars were then removed under direct vision and the sites were hemostatic. The primary trocar and camera were removed together. No bowel was seen to follow. The 11 mm trocar sites were closed deeply with [id number] 2-0 Vicryl suture followed by running subcuticular 4-0 Monocryl suture. 5 mm trocar site was closed with subcuticular 4-0 Monocryl suture. Sterile dressings were applied. The patient tolerated procedure well and was taken to the recovery room in excellent condition. All sponge instrument and needle counts were correct. The estimated blood loss was approximately 100 cc. Condition: stable Disposition: PACU Specimens:: Uterus and fallopian tubes Complications:: None
--- NOTE | 2023-06-04 09:42 | EXP.HP ---
History of Present Illness *Admission Date: 06/04/23 *Reason for visit:: Pelvic pain, dyspareunia, *History of present illness: She is a 37-year-old lady who complains of lower abdominal pain as well as dyspareunia and dysmenorrhea. Ultrasound showed a slightly bulky uterus. I suspect she has adenomyosis. After having discussed the risk and benefits she elected to have a laparoscopically assisted vaginal hysterectomy and bilateral salpingectomy. [facility] Disclaimer: The information contained in this section may have been updated after the patient was seen, as this information can be updated by other users. Medical History Family history of coronary artery disease Family history of [place] (myocardial infarction) Hypothyroid Pelvic pain in female Post endometrial ablation syndrome Surgical History History of bariatric surgery History of endometrial ablation Hx of tubal ligation Family History Diabetes Heart attack Cancer Hypertension Stroke Asthma Social History Smoking Status: Never smoker second hand exposure: No alcohol intake: never substance use type: denies use current occupational status: employed Travel in the last 8 weeks: None household members: children housing: house number of children: 3 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 current occupational exposures/hazards: No caffeine: Yes Review of Systems Review of Systems Review of systems:: pertinent systems reviewed and negative unless documented below Meds Home Medications and Allergies Home Medications Medication Instructions Recorded Confirmed Type dextroamphetamine-amphetamine ER 30 mg PO DAILY 10/25/22 06/04/23 History 30 mg 24hr capsule,extend release (Adderall XR) diltiazem HCl 120 mg 120 mg PO DAILY 03/18/23 06/04/23 History capsule,extended release 24 hr (Cartia XT) venlafaxine 150 mg 150 mg PO DAILY 05/30/23 06/04/23 History capsule,extended release 24 hr vortioxetine 10 mg tablet 10 mg PO DAILY 05/30/23 06/04/23 History (Trintellix) New Prescriptions to Start Prescriptions: Allergies Allergy/AdvReac Type Severity Reaction Status Date / Time No Known Allergies Allergy Verified 05/30/23 14:58 Exam Data for Last 24 hours Vital signs and Labs for Last 24 Hours: Temp Pulse Resp BP Pulse Ox O2 Del Method 96.5 F L 82 16 126/77 99 Room Air 06/04/23 09:32 06/04/23 09:32 06/04/23 09:32 06/04/23 09:32 06/04/23 06:40 06/04/23 06:40 Laboratory Results - last 24 hr 06/04/23 06:35: Potassium 3.6 I & O for Last 24 hours: Intake & Output 06/01/23 06/02/23 06/03/23 06/04/23 11:59 11:59 11:59 11:59 Intake Total 700 / 700 Balance 700 / 700 Weight 148 lb Constitutional Constitutional: no acute distress *Routine HEENT Exam Head: Present normocephalic Eye: Present EOMI and PERRL ENT: Present mucous membranes moist *Routine Neck Exam Neck: Present supple; Absent lymphadenopathy *Routine Respiratory Exam Respiratory: Present CTA bilaterally *Routine Cardiovascular Exam Cardiovascular: Present RRR *Routine Abdominal Exam Abdominal: Present soft and normoactive bowel sounds; Absent tenderness *Routine Rectal Exam Rectal:: deferred *Routine Genitalia Exam Genitalia:: deferred *Routine Extremities Exam Extremities: Absent cyanosis, clubbing or edema *Routine Skin Exam Skin: Present warm; Absent rash *Routine Neurological Exam Neurological: Present alert and oriented X3 Assessment and Plan *Assessment and plan (1) Adenomyosis: Status: Acute Category: Medical Code(s): N80.03 - Adenomyosis of the uterus (2) Retroverted uterus: Status: Acute Category: Medical Code(s): N85.4 - Malposition of uterus (3) Post endometrial ablation syndrome: Status: Acute Category: Medical Code(s): N99.85 - Post endometrial ablation syndrome (4) Pelvic pain in female: Status: Acute Category: Medical Code(s): R10.2 - Pelvic and perineal pain (5) Endometriosis determined by laparoscopy: Status: Acute Category: Medical Code(s): N80.9 - Endometriosis, unspecified Plan She is admitted for a laparoscopic-assisted vaginal hysterectomy and bilateral salpingectomy.
--- NOTE | 2023-06-04 10:05 | SUR.PHASEI ---
0954- detailed report called to aster conrad in OB 0956- pt left in stable condition with aster conrad in pt room. VSS, dressings CDI, family at BS
--- NOTE | 2023-06-04 10:45 | HMH.PHAINT1 ---
Pharmacy Intervention Comments: MEDICATION RECONCILIATION COMPLETED ON PATIENT USING EXTERNAL FILL HISTORY FROM PHARMACY AND DARREL REPORT. -ANTONIO JACKSON, KITD
[2023-06-04] MEDS: ACETAMINOPHEN 500MG TAB 1000 MG PO ×3 (10:52→22:01)
[2023-06-04] MEDS: KETOROLAC 30MG/ML VIAL 30 MG IV ×3 (10:53→22:02)
[2023-06-04] MEDS: LACTATED RINGERS 1000ML 1,000 ML 125 ML IV ×2 (10:54→19:44)
[2023-06-04] MEDS: ONDANSETRON 4MG/2ML VIAL 4 MG IV (10:56)
[2023-06-04] MEDS: HYDROMORPHONE 2MG/ML SYRINGE 1 MG IV (12:15)
[2023-06-04 16:03] LABS: Hematocrit 36.1 % (37.0-47.0); Hemoglobin 12.2 g/dL (12.2-16.2)
[2023-06-04] MEDS: OXYCODONE 5MG IMMEDIATE RELEASE TABLET 10 MG PO ×2 (17:22→21:22)
--- NOTE | 2023-06-04 19:12 | PC.NURSE ---
All care and documentation by Dom Wagner RN was completed under my direct supervision.
--- NOTE | 2023-06-04 20:00 | PC.WOUNDNOTE ---
PT ABLE TO ACHIEVE 2500ML ON INCENTIVE SPIROMETER.PT COUGHING AND DEEP BREATHING.SMALL ABD PILLOW PROVIDED TO SPLINT HER INCISION.BED IN LOW POSTION AND CALL LIGHT IN REACH.NO NEEDS OR CONCERNS VOICED
[2023-06-04] MEDS: SIMETHICONE 80MG CHEWABLE TABLET 160 MG PO (20:50)
--- NOTE | 2023-06-04 20:50 | PC.NURSE ---
PT HAD RANG OUT TO SEE IF TIME FOR PAIN MEDICINE TOLD HER THAT I COULD GIVE HER OXYCODONE AROUND 2129,PT DENIED PASSING ANY GAS.TOLD HER I COULD GET HER SOME MYLICON FOR GAS,BUT TO GET THE GAS MOVING SHE COULD ROCK IN ROCKING CHAIR OR AMBULATE IN [place].SHE V/U.MYLICON 160MG PO OF MYLICON GIVEN
--- NOTE | 2023-06-04 21:22 | PC.NURSE ---
PT REPORTS THE MYLICON HAS GOTTEN THE GAS TO MOVING NOW,BUT STILL RATING PAIN A 4 ON SCALE OF 0-10,OXYCODONE 10MG PO GIVEN
--- NOTE | 2023-06-04 22:30 | PC.NURSE ---
PT SLEEPING NOW.RESP.EVEN AND UNLABORED.BED IN LOW POSTION AND CALL MORGAN IN REACH
--- NOTE | 2023-06-04 23:25 | PC.NURSE ---
ANCEF 1 GRAM HUNG AT THIS TIME,V/S OBTAINED PT REPORTS SHE JUST WOKE UP AND FEELS MUCH BETTER.NO NEEDS OR CONCERNS VOICED AT THIS TIME.BED IN LOW POSITION AND CALL LIGHT IN REACH
[2023-06-05] MEDS: OXYCODONE 5MG IMMEDIATE RELEASE TABLET 10 MG PO ×2 (02:00→08:22)
--- NOTE | 2023-06-05 02:38 | PC.NURSE ---
PT REPORTED MEDICINE HAS NOT STARTED TO WORK YET,SHE IS TRYING TO GET COMFORTABLE.NO NEEDS OR CONCERNS VOICED
[2023-06-05] MEDS: KETOROLAC 30MG/ML VIAL 30 MG IV (03:56)
[2023-06-05] MEDS: ACETAMINOPHEN 500MG TAB 1000 MG PO ×2 (03:56→09:53)
[2023-06-05 04:00] VITALS: BP 105/55; PULSE 83; RESP 17; TEMP 36.4; O2SAT 99
--- NOTE | 2023-06-05 04:00 | PC.NURSE ---
NO ACUTE CHANGES FROM PREVIOUS ASSESSMENT.LUNGS CLEAR,RESP.EVEN AND UNLABOREDNO NEW DRAINAGE TO THE 4 LAP SITES,PT REPORTS PASSING SOME GAS,VOIDING WITHOUT DIFF.PT HAS HAD A LOT OF CRAMPING TONIGHT,VAG.BLEEDING HAS BEEN BETTER,SMALL AMT.MEDICATED SEVERAL TIMES WITH OXYCODONE AND ALLA.TYLENOL AND TYLENOL.
[2023-06-05] MEDS: LACTATED RINGERS 1000ML 1,000 ML 125 ML IV (05:29)
--- NOTE | 2023-06-05 06:53 | EXP.ANES.CKL ---
[facility] Disclaimer: The information contained in this section may have been updated after the patient was seen, as this information can be updated by other users. Medical History Cervical strain Chest pain Concussion Family history of coronary artery disease Family history of [place] (myocardial infarction) Hypothyroid Orthostatic syncope Pelvic pain in female Post endometrial ablation syndrome Weight loss Surgical History History of bariatric surgery History of bilateral salpingectomy History of endometrial ablation Hx of tubal ligation Status post laparoscopic assisted vaginal hysterectomy ([facility]) Family History Other Asthma Cancer Diabetes Heart attack Hypertension Stroke Social History Smoking Status: Never smoker second hand exposure: No alcohol intake: never substance use type: denies use current occupational status: employed Travel in the last 8 weeks: None household members: children housing: house number of children: 3 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
[2023-06-05 07:30] LABS: Anion Gap 4.8 mEq/L (5-15); Blood Urea Nitrogen 8 mg/dl (7-17); Calcium 7.7 mg/dl (8.4-10.2); Carbon Dioxide 30 mmol/L (22.0-30.0); Chloride 106 mmol/L (98-107); Creatinine Clearance Estimated 137 mL/min (50-200); Estimated Glomerular Filt Rate 113 ml/min (>60); GFR (African American) 137 ML/MIN (>60); Glucose 83 mg/dl (74-100); Potassium 3.8 mmoL/L (3.5-5.1); Sodium 137 mmol/L (136-145)
[2023-06-05 07:37] LABS: Basophils % 0.4 % (0.1-2.0); Eosinophils # 0.1 K/mm3 (0.0-0.4); Eosinophils % 1.1 % (0.1-12.0); Hematocrit 31.7 % (37.0-47.0); Lymphocytes % 41.8 % (10-50); Mean Corpuscular HGB Conc 34.2 g/dL (31.8-35.4); Mean Corpuscular Hemoglobin 30.2 pg (27.0-31.2); Mean Corpuscular Volume 88.1 fl (81-99); Mean Platelet Volume 8.4 fl (7.4-10.4); Monocytes # 0.5 K/mm3 (0.1-1.0); Monocytes % 6.2 % (1.7-9.3); Neutrophils # 3.7 K/mm3 (1.8-7.8); Neutrophils % 50.5 % (37.0-80.0); Platelet Count 275 K/mm3 (142-424); Red Cell Distribution Width 13.1 % (11.5-17.5); White Blood Count 7.3 K/mm3 (4.8-10.8)
[2023-06-05 08:05] LABS: Hemoglobin 10.9 g/dL (12.2-16.2)
[2023-06-05 08:20] VITALS: BP 104/53; PULSE 98; RESP 18; TEMP 36.6; O2SAT 98
[2023-06-05] MEDS: SENNOSIDES 8.6MG/DOCUSATE 50MG TABLET 1 TAB PO (08:22)
--- NOTE | 2023-06-05 09:24 | P.DS_ITS ---
General Admission date:: 06/04/23 Discharge date: 06/05/23 HPI HPI HPI: She is a 37-year-old lady who complains of lower abdominal pain as well as dyspareunia and dysmenorrhea. Ultrasound showed a slightly bulky uterus. I suspect she has adenomyosis. After having discussed the risk and benefits she elected to have a laparoscopically assisted vaginal hysterectomy and bilateral salpingectomy. Hospital Course Hospital Course Hospital Course: On June 04, 2023 she underwent a laparoscopically assisted vaginal hysterectomy and bilateral salpingectomy. Postoperatively she had some vaginal bleeding and soaked a couple of pads overnight. She is not actively bleeding at this point in time and she is stable. Her hemoglobin dropped from 12.2-10.4. She denies any shortness of breath or dizziness at this point in time. She denies any shortness of breath, chest pain or severe abdominal pain. She has some lower abdominal cramps. She will be discharged home to follow-up with me in 2 weeks time. She will continue with her her home medications. She was given a prescription for Percocet 5/325 number 14 tablets. She was given the usual instructions with respect to limiting her activity, driving and sexual activity. She was given instructions with respect to wound care. Her condition on discharge is stable and improved. Exam Data for Last 24 hours Vital signs and Labs for Last 24 Hours: Temp Pulse Resp BP Pulse Ox O2 Del Method 97.9 F 98 H 18 104/53 L 98 Room Air 06/05/23 08:20 06/05/23 08:20 06/05/23 08:20 06/05/23 08:20 06/05/23 08:20 06/05/23 08:20 Laboratory Results - last 24 hr 06/04/23 15:55: Hgb 12.2, Hct 36.1 L 06/05/23 07:00: WBC 7.3, RBC 3.60 L, Hgb 10.9 L D, Hct 31.7 L, MCV 88.1, MCH 30.2, MCHC 34.2, RDW 13.1, Plt Count 275, MPV 8.4, Neut % (Auto) 50.5, Lymph % (Auto) 41.8, [place] % (Auto) 6.2, Eos % (Auto) 1.1, Baso % (Auto) 0.4, Neut # (Auto) 3.7, Lymph # (Auto) 3.0, [place] # (Auto) 0.5, Eos # (Auto) 0.1, Baso # (Auto) 0.0, Sodium 137, Potassium 3.8, Chloride 106, Carbon Dioxide 30, Anion Gap 4.8 L, BUN 8, Creatinine 0.60, Estimated Creat Clear 137, Estimated GFR 113, Est GFR ( Amer) 137, Glucose 83, Calcium 7.7 L I & O for Last 24 hours: Intake & Output 06/02/23 06/03/23 06/04/23 06/05/23 11:59 11:59 11:59 11:59 Intake Total 700 / 700 Output Total 1000 / 1000 Balance 700 / 700 -1000 / -1000 Constitutional Constitutional: no acute distress *Routine HEENT Exam Head: Present normocephalic *Routine Neck Exam Neck: Present supple and full ROM *Routine Respiratory Exam Respiratory: Present normal respiratory effort, able to speak in complete sentences and symmetric chest movement; Absent accessory muscle use, wheezes or crackles *Routine Cardiovascular Exam Cardiovascular: Present RRR *Routine Abdominal Exam Abdominal: Present soft and normoactive bowel sounds; Absent tenderness or distended Comments: Her incisions are clean and dry. Results Data Completed and Pending Labs on day of discharge: Labs from last 24 hours 06/05/23 06/04/23 07:00 15:55 WBC 7.3 RBC 3.60 L Hgb 10.9 L D 12.2 Hct 31.7 L 36.1 L MCV 88.1 MCH 30.2 MCHC 34.2 RDW 13.1 Plt Count 275 MPV 8.4 Neut % (Auto) 50.5 Lymph % (Auto) 41.8 [place] % (Auto) 6.2 Eos % (Auto) 1.1 Baso % (Auto) 0.4 Neut # (Auto) 3.7 Lymph # (Auto) 3.0 [place] # (Auto) 0.5 Eos # (Auto) 0.1 Baso # (Auto) 0.0 Sodium 137 Potassium 3.8 Chloride 106 Carbon Dioxide 30 Anion Gap 4.8 L BUN 8 Creatinine 0.60 Estimated Creat Clear 137 Estimated GFR 113 Est GFR ( Amer) 137 Glucose 83 Calcium 7.7 L DS: Diagnosis Discharge Diagnosis (1) Adenomyosis: Status: Acute Code(s): N80.03 - Adenomyosis of the uterus (2) Retroverted uterus: Status: Acute Code(s): N85.4 - Malposition of uterus (3) Post endometrial ablation syndrome: Status: Acute Code(s): N99.85 - Post endometrial ablation syndrome (4) Pelvic pain in female: Status: Acute Code(s): R10.2 - Pelvic and perineal pain (5) Endometriosis determined by laparoscopy: Status: Acute Code(s): N80.9 - Endometriosis, unspecified Meds Home Medications and Allergies Home Medications Medication Instructions Recorded Confirmed Type dextroamphetamine-amphetamine ER 30 mg PO DAILY 10/25/22 06/04/23 History 30 mg 24hr capsule,extend release (Adderall XR) diltiazem HCl 120 mg 120 mg PO DAILY Heart Rate 03/18/23 06/04/23 History capsule,extended release 24 hr (Cartia XT) venlafaxine 150 mg 150 mg PO DAILY 05/30/23 06/04/23 History capsule,extended release 24 hr vortioxetine 10 mg tablet 10 mg PO DAILY 05/30/23 06/04/23 History (Trintellix) dextroamphetamine-amphetamine 10 10 mg PO DAILY 06/04/23 06/04/23 History mg tablet venlafaxine 37.5 mg 37.5 mg PO DAILY 06/04/23 06/04/23 History capsule,extended release 24 hr oxycodone-acetaminophen 5 mg-325 1 tab PO Q6H PRN pain #14 tabs 06/05/23 Rx mg tablet New Prescriptions to Start Prescriptions: oxycodone-acetaminophen Bo Barnard Allergies Allergy/AdvReac Type Severity Reaction Status Date / Time No Known Allergies Allergy Verified 05/30/23 14:58 Discharge Plan Disposition Patient Disposition: Home, Self-Care Follow up Plan Prescriptions/Medication Reconciliation: New oxycodone-acetaminophen 5-325 mg tablet 1 tab PO Q6H PRN (Reason: pain) Qty: 14 0RF Continued dextroamphetamine-amphetamine [Adderall XR] 30 mg capsule,extended release 24hr 30 mg PO DAILY diltiazem HCl [Cartia XT] 120 mg capsule,extended release 24hr 120 mg PO DAILY venlafaxine 150 mg capsule,extended release 24hr 150 mg PO DAILY Trintellix 10 mg tablet 10 mg PO DAILY venlafaxine 37.5 mg capsule,extended release 24hr 37.5 mg PO DAILY dextroamphetamine-amphetamine 10 mg tablet 10 mg PO DAILY Problem Reconciliation Problems Reviewed?: Yes Patient Discharge Instructions ACTIVITY: No heavy lifting DIET: continue same diet Providers Primary Care Provider: Loretta Salgado Admit Provider: Bo Barnard Attending Provider: Bo Barnard
--- NOTE | 2023-06-05 12:11 | EXP.ANES.II ---
[facility] Anesthesia Record Part II Anesthesia Record Part II Discharge Time: 09:55 Destination: Obstetric PACU nurse assessment reviewed?: Yes Patient Condition:: Good Anesthesia Complications:: None Swallowing reflex intact?: Yes Airway Patency: Patent Cyanosis?: No Blood Pressure: 149/78 SaO2: 99 Respiratory Rate: 16 Pulse Rate: 98 Temperature: 97.5 F Mental Status: Alert & Oriented Pain level:: 0 Nausea and/or vomitting:: None Intake, IV Amount: 0 Hydration: Adequate
[2023-06-05 12:12] VITALS: BP 149/78; PULSE 98; RESP 16; TEMP 36.4; O2SAT 99
== END 2023-06-05 10:15 | disposition home or self-care (01) ==
LOC: OB 09:59
PROVIDERS: Admitting Provider Nurse Practitioner Obstetrics & Gynecology; PCP Nurse Practitioner Family; Visit Provider Nurse Practitioner Obstetrics & Gynecology
PROC: 0UT9FZZ Resection of Uterus, Via Natural or Artificial Opening With Percutaneous Endoscopic Assistance (ICD-10-PCS; CPT 58550; principal; 2023-06-04 07:30)
DX: R10.2 Pelvic and perineal pain (principal); N99.85 Post endometrial ablation syndrome; N94.6 Dysmenorrhea, unspecified; N80.03 Adenomyosis of the uterus; N85.4 Malposition of uterus; N80.8 Other endometriosis
CPT/HCPCS: 58550; 36415; 80048; 84132; 85014; 85018; 85025; 87086; 96374; J3490; G0378; J2405

== ENCOUNTER 2023-11-23 08:06 | Emergency (ER) | payer OTHER, SELFPAY ==
[2023-11-23 08:10] VITALS: BP 117/48; PULSE 75; RESP 20; TEMP 36.7; O2SAT 97; BMI 26.0
--- NOTE | 2023-11-23 08:19 | XR_ITS ---
PROCEDURE INFORMATION: Exam: XR Right Hand Exam date and time: 11/23/2023 8:16 AM Age: 38 years old Clinical indication: Injury or trauma; Blunt trauma (contusions or hematomas); Right; Patient HX: Fall x 2 days ago. Pain in center of hand with limited mobility. TECHNIQUE: Imaging protocol: Radiologic exam of the right hand. Views: 3 or more views. COMPARISON: No relevant prior studies available. FINDINGS: Bones/joints: Normal. Soft tissues: A mild soft tissue swelling IMPRESSION: No evidence of acute osseous injury.
--- NOTE | 2023-11-23 08:21 | EXP.UTC ---
Discharge Plan Disposition Patient Disposition: Home, Self-Care Condition: Good Prescriptions Prescriptions: No Action venlafaxine 150 mg capsule,extended release 24hr 150 mg PO DAILY estradiol 2 mg tablet 2 mg PO DAILY diltiazem HCl 120 mg capsule,extended release 24hr 120 mg PO DAILY lisdexamfetamine [Vyvanse] 30 mg capsule 30 mg PO DAILY Referrals Follow up/Referrals: Loretta Salgado APRN [Primary Care Provider] - See instructions Activity Restrictions/Add. Instructions Additional Instructions/Restrictions: rest Ice with cold pack for 20 minutes remove may repeat for comfort every hour splint for support and swelling no less in the shower. Be sure not too tight but not to lose either Elevate with hand above your heart as much as possible to help reduce swelling and therefore pain Ibuprofen every 6 hours as needed for pain or inflammation. If needs something more you can take Tylenol every 4 hours as needed as long as her primary care has told he was okayed for you to take both. Follow-up immediately if new or worsening symptoms or no noticeable improvement over the next 3-5 days. call ortho if no improvement Clinical Impressions Clinical Impression: Contusion Instructions Patient Instructions: DI for Contusion, Contusion Discharge ED Provider: Angelica ([facility])Amilcar [facility] [place] HPI General Stated complaint: AO07/ RT hand inj Mode of Arrival: Ambulatory Source of Information: Patient Limitations: No Limitations Time Seen by Provider: 11/23/23 08:21 Description of Symptoms (Recalled from Triage Doc. by RN): PATIENT C/O PAIN AND SWELLING TO RIGHT HAND AFTER SHE INJURED IT CHASING HER DOG SATURDAY MORNING HEENT Symptoms (Recalled from RN notes): No Resp Symptoms (Recalled from RN notes): No Skin Symptoms (Recalled from RN notes): No MS Symptoms (Recalled from RN notes): Yes Functional Status (Recalled from RN notes): WNL History of Present Illness Provider Complaint: 38 yr old female presents for rt hand pain. pt states on she was chasing her dog and hit hand as she was catching her dog. Related Data Home Medications Medication Instructions Recorded Confirmed diltiazem HCl 120 mg 120 mg PO DAILY 11/23/23 11/23/23 capsule,extended release 24 hr estradiol 2 mg tablet 2 mg PO DAILY 11/23/23 11/23/23 lisdexamfetamine 30 mg capsule 30 mg PO DAILY 11/23/23 11/23/23 (Vyvanse) venlafaxine 150 mg 150 mg PO DAILY 11/23/23 11/23/23 capsule,extended release 24 hr Allergies Allergy/AdvReac Type Severity Reaction Status Date / Time No Known Allergies Allergy Verified 07/09/23 08:50 Worker's Comp Is this a Worker's Comp case?: No PFSH PFS Disclaimer: The information contained in this section may have been updated after the patient was seen, as this information can be updated by other users. Medical History , [employer]) Family history of [place] (myocardial infarction) Family history of coronary artery disease Orthostatic syncope Cervical strain Chest pain Concussion Post endometrial ablation syndrome Pelvic pain in female Hypothyroid Weight loss Surgical History , [employer]) History of bilateral salpingectomy Status post laparoscopic assisted vaginal hysterectomy (LAVH) History of bariatric surgery History of endometrial ablation Hx of tubal ligation Family History , [employer]) Diabetes Heart attack Cancer Hypertension Stroke Asthma Social History , [employer]) Smoking Status: Never smoker second hand exposure: No alcohol intake: never substance use type: denies use current occupational status: employed Travel in the last 8 weeks: None household members: children housing: house number of children: 3 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 current occupational exposures/hazards: No caffeine: Yes ROS Obtained: Yes All systems reviewed & no additional complaints except as documented Constitutional Constitutional: Reports system reviewed and no additional complaints, except as documented Eyes Eyes: Reports system reviewed and no additional complaints, except as documented ENT Ears, Nose, Mouth, and Throat: Reports system reviewed and no additional complaints, except as documented Cardiovascular Cardiovascular: Reports system reviewed and no additional complaints, except as documented Respiratory Respiratory: Reports system reviewed and no additional complaints, except as documented Musculoskeletal Musculoskeletal: Reports system reviewed and no additional complaints, except as documented, Reports as per HPI, Reports arthralgias, Reports joint swelling and Reports limited range of motion Integumentary/Breasts Skin/Breast: Reports system reviewed and no additional complaints, except as documented Neurologic Neurologic: Reports system reviewed and no additional complaints, except as documented Endocrine Endocrine: Reports system reviewed and no additional complaints, except as documented Hematologic/Lymphatic Henatologic/Lymphatic: Reports system reviewed and no additional complaints, except as documented Allergic/Immunologic Allergic/Immunologic: Reports system reviewed and no additional complaints, except as documented Physical Exam General General appearance: alert and in no apparent distress Head Head exam: atraumatic Eye Eye exam: Present normal appearance ENT ENT exam: Present normal exam Respiratory Respiratory exam: Present normal lung sounds bilaterally Cardiovascular Cardiovascular exam: Present regular rate and normal rhythm Extremities Exam Extremities exam: Present normal inspection, full ROM, tenderness, normal capillary refill and joint swelling Expanded Upper Extremity Exam Right: Hand exam: Present tenderness, swelling and ecchymosis Hand L/R back image: 1. swelling, redness Neurological Exam Neurological exam: Present alert and oriented X3 Skin Skin exam: Present warm Medical Decision Making Medical Records Medical records reviewed: Yes I reviewed the patient's medical records. Vamshi Inquiry Pt receiving controlled substance: No Vamshi was queried for this patient: No Vital Signs: 11/23/23 08:10 Temperature 98.1 F Temperature Source Oral Pulse Rate [Left Brachial] 75 Respiratory Rate 20 Blood Pressure [Left Arm] 117/48 L Blood Pressure Mean [Left Arm] 71 Blood Pressure Source [Left Arm] Automatic Cuff Blood Pressure Position [Left Arm] Sitting 02 Sat by Pulse Oximetry 97 Oxygen Delivery Method Room Air Orders (Tests/Meds): ORDERS Category Date Time Status Hand XR right minimum 3 views [XR hand RT min 3V] Stat Exams 11/23/23 08:19 Ordered
[2023-11-23 09:18] VITALS: BP 117/48; PULSE 75; RESP 20; TEMP 36.7; O2SAT 97
== END 2023-11-23 09:37 | disposition home or self-care (01) ==
PROVIDERS: Emergency Provider Nurse Practitioner Family; PCP Nurse Practitioner Family
DX: S60.221A Contusion of right hand, initial encounter (principal); W22.8XXA Striking against or struck by other objects, initial encounter
CPT/HCPCS: 73130; 99203; 99212; G0463

== ENCOUNTER 2024-05-10 08:34 | Emergency (ER) | payer OTHER, SELFPAY ==
[2024-05-10 08:40] VITALS: BP 140/84; PULSE 81; RESP 18; TEMP 36.8; O2SAT 98; BMI 25.7
--- NOTE | 2024-05-10 08:48 | EXP.UTC ---
Discharge Plan Disposition Patient Disposition: Home, Self-Care Condition: Good Prescriptions Prescriptions: New amoxicillin 875 mg tablet 875 mg PO Q12H Qty: 20 0RF ciprofloxacin-dexamethasone 0.3-0.1 % drops,suspension 4 drp otic (ear) BID 7 Days Qty: 7.5 0RF Rx Instructions: apply in left ear as directed fluticasone propionate [Flonase Allergy Relief] 50 mcg/actuation spray,suspension 2 spray intranasal DAILY Qty: 16 0RF Rx Instructions: administer into each nostril daily No Action estradiol 2 mg tablet 2 mg PO DAILY Qty: 30 11RF venlafaxine 150 mg capsule,extended release 24hr 150 mg PO DAILY lisdexamfetamine [Vyvanse] 30 mg capsule 30 mg PO DAILY Referrals Follow up/Referrals: Loretta Salgado APRN [Primary Care Provider] - See instructions Activity Restrictions/Add. Instructions Additional Instructions/Restrictions: Take oral medication as prescribed Use ear drops as prescribed Over the counter Motrin and/or Tylenol for pain Follow up with your Family Doctor if no improvement Straight to ER if any life threatening symptoms Clinical Impressions Clinical Impression: Otitis media Qualifiers: Otitis media type: unspecified Laterality: left Qualified Code(s): H66.92 - Otitis media, unspecified, left ear Instructions Patient Instructions: Middle Ear Infection, Ciprofloxacin and Dexamethasone Otic Print Language Print Language: Pashto Discharge ED Provider: Frannie Garnica [facility] General Stated complaint: left ear pain Mode of Arrival: Ambulatory Source of Information: Patient Limitations: No Limitations Time Seen by Provider: 05/10/24 08:49 Description of Symptoms (Recalled from Triage Doc. by RN): PATIENT C/O PAIN AND PRESSURE TO LEFT EAR SINCE SATURDAY HEENT Symptoms (Recalled from RN notes): Yes Resp Symptoms (Recalled from RN notes): No Skin Symptoms (Recalled from RN notes): No MS Symptoms (Recalled from RN notes): No Functional Status (Recalled from RN notes): WNL History of Present Illness Provider Complaint: Patient states that she has been having pain and pressure in her left ear for several days that has continued to get worse States that the outside of her is tender and hurts down behind her ear States since it has continued to get worse she came in to get it checked Related Data Home Medications ?Medication ?Instructions ?Recorded ?Confirmed lisdexamfetamine 30 mg capsule 30 mg PO DAILY 11/23/23 05/10/24 (Vyvanse) venlafaxine 150 mg 150 mg PO DAILY 11/23/23 05/10/24 capsule,extended release 24 hr Previous Rx's ?Medication ?Instructions ?Recorded estradiol 2 mg tablet 2 mg PO DAILY #30 tabs 12/30/23 amoxicillin 875 mg tablet 875 mg PO Q12H #20 tabs 05/10/24 ciprofloxacin 0.3 %-dexamethasone 4 drp otic (ear) BID 7 days #7.5 mL 05/10/24 0.1 % ear drops,suspension fluticasone propionate 50 2 spray intranasal DAILY #16 grams 05/10/24 mcg/actuation nasal spray,suspension (Flonase Allergy Relief) Allergies Allergy/AdvReac Type Severity Reaction Status Date / Time No Known Allergies Allergy Verified 07/09/23 08:50 Worker's Comp Is this a Worker's Comp case?: [facility] Disclaimer: The information contained in this section may have been updated after the patient was seen, as this information can be updated by other users. 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) History of bilateral salpingectomy Status post laparoscopic assisted vaginal hysterectomy (LAVH) History of bariatric surgery History of endometrial ablation Hx of tubal ligation Family History , 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) Diabetes Heart attack Cancer Hypertension Stroke Asthma Social History , 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) Smoking Status: Never smoker second hand exposure: No alcohol intake: never substance use type: denies use current occupational status: employed Travel in the last 8 weeks: None household members: children housing: house number of children: 3 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 current occupational exposures/hazards: No caffeine: Yes Have you lived/traveled outside [place] in past 30 days?: No Contact w/someone who lives/traveled outside [place] past 30 days?: No Exposure to someone with infectious disease in past 14 days?: No Do you have a fever (greater than 100.4 F or 38 C)?: No Have you tested positive for COVID-19: No Exposed to someone with COVID-19 in past 14 days?: No Do you have a sore throat?: No Do you have a cough?: No Do you have any weakness?: No Do you have any diarrhea?: No Are you experiencing any unusual bleeding?: No Do you have any muscle aches/pain?: No Do you have any abdominal pain?: No Are you experiencing loss of taste or smell?: No ROS Obtained: Yes All systems reviewed & no additional complaints except as documented and Yes Systems reviewed as appropriate & no additional complaints except as documented Constitutional Constitutional: Reports system reviewed and no additional complaints, except as documented and Reports as per HPI ENT Ears, Nose, Mouth, and Throat: Reports system reviewed and no additional complaints, except as documented, Reports as per HPI, Reports otalgia, Denies nasal congestion, Denies nasal discharge and Denies sore throat Cardiovascular Cardiovascular: Reports system reviewed and no additional complaints, except as documented and Reports as per HPI Respiratory Respiratory: Reports system reviewed and no additional complaints, except as documented and Reports as per HPI Physical Exam General General appearance: alert and in no apparent distress ENT ENT exam: Present mucous membranes moist Expanded ENT Exam External ear exam: Present pain with movement (left) and external tenderness (left) TM/Canal exam: Left TM: erythema, bulging and canal tenderness (mild swelling noted) Chest Chest inspection: Present normal inspection and symmetric chest wall rise Respiratory Respiratory exam: Present normal lung sounds bilaterally; Absent respiratory distress or wheezes Cardiovascular Cardiovascular exam: Present regular rate, normal rhythm and normal heart sounds Abdominal Exam Abdominal exam: Present soft and normal bowel sounds; Absent distention or tenderness Neurological Exam Neurological exam: Present alert, oriented X3 and normal gait Medical Decision Making Medical Records Screening: Per USPSTF and CDC recommendations, given the prevalence of disease in our region, it is our hospital?s policy to screen for HIV and viral Hepatitis for all patients aged 18 and over and those with ongoing risk factors. Vamshi Inquiry Pt receiving controlled substance: No Vamshi was queried for this patient: No Vital Signs: 05/10/24 08:40 Temperature 98.2 F Temperature Source Oral Pulse Rate [Left Brachial] 81 Respiratory Rate 18 Blood Pressure [Left Arm] 140/84 Blood Pressure Mean [Left Arm] 102 Blood Pressure Source [Left Arm] Automatic Cuff Blood Pressure Position [Left Arm] Sitting 02 Sat by Pulse Oximetry 98 Oxygen Delivery Method Room Air
[2024-05-10 09:01] VITALS: BP 140/84; PULSE 81; RESP 18; TEMP 36.8; O2SAT 98
== END 2024-05-10 09:02 | disposition home or self-care (01) ==
PROVIDERS: Emergency Provider Nurse Practitioner; PCP Nurse Practitioner Family
DX: H66.92 Otitis media, unspecified, left ear (principal)
CPT/HCPCS: 99213; G0381